=== PATIENT | female | born 1965 | race Two or more races ===

== ENCOUNTER 2018-03-19 07:13 | Day surgery (SDC) | payer OTHER ==
[~2018-03-19 07:13] MED LIST: CEFAZOLIN 2 GM/50 ML (PMX) 50 ML IVPB; SOD CHLORIDE 0.9% 1,000 ML IV
[2018-03-19] MEDS ORDERED: MIDAZOLAM 1 MG/ML 2 ML INJ (11:02)
[2018-03-19] MEDS: LIDOCAINE 2% (MDV) 20 ML INJ (11:19)
[2018-03-19] MEDS: BUPIVACAINE 0.25% (MPF) 30 ML INJ (11:19)
[2018-03-19] MEDS ORDERED: CEFAZOLIN 1 GM INJ (11:25)
[2018-03-19] MEDS ORDERED: LIDOCAINE 2% (SDV) 5 ML INJ (11:25)
[2018-03-19] MEDS ORDERED: PROPOFOL 20 ML (11:25)
[2018-03-19] MEDS ORDERED: HYDROCODONE/APAP (5/325) TAB PO (11:30)
[2018-03-19] MEDS ORDERED: MEPERIDINE 25 MG INJ IV (12:00)
[2018-03-19] MEDS ORDERED: hydrALAzine 20 MG INJ IV (12:00)
[2018-03-19] MEDS ORDERED: KETOROLAC 30 MG INJ IV (12:00)
[2018-03-19] MEDS ORDERED: DIPHENHYDRAMINE 50 MG INJ IV (12:00)
[2018-03-19] MEDS ORDERED: LABETALOL HCL 20MG INJ IV (12:00)
[2018-03-19] MEDS ORDERED: OXYCODONE/ACETAMINOPHEN (5/325) TAB PO ×2 (12:00)
[2018-03-19] MEDS ORDERED: EPHEDrine SULFATE 50 MG/5 ML SYG IV (12:00)
[2018-03-19] MEDS ORDERED: ONDANSETRON 4 MG INJ IV (12:00)
[2018-03-19] MEDS ORDERED: FENTAnyl 50 MCG/ML VIAL IV ×3 (12:00)
[2018-03-19] MEDS ORDERED: ALBUTEROL 0.083% (NEB) 2.5 MG/3 ML AMP HHN (12:00)
== END 2018-03-19 14:10 | disposition home or self-care (01) ==
LOC: SDS 07:13
DX: R22.2 Localized swelling, mass and lump, trunk (principal)
CPT/HCPCS: 14000; 84703; 88307